=== PATIENT | female | born 1935 | race Caucasian/White ===

== ENCOUNTER 2017-01-08 14:09 | Outpatient (CLI) | payer MEDICARE, OTHER | END 2017-01-08 14:10 | disposition home or self-care (01) | DX: I10 Essential (primary) hypertension (principal); I51.9 Heart disease, unspecified ==

== ENCOUNTER 2017-01-08 15:44 | Outpatient (CLI) | payer MEDICARE, OTHER | END 2017-01-08 15:45 | disposition home or self-care (01) | DX: I51.9 Heart disease, unspecified (principal) ==

== ENCOUNTER 2017-01-10 13:00 | Outpatient (CLI) | payer MEDICARE, OTHER | END 2017-01-10 13:01 | disposition home or self-care (01) | DX: R25.2 Cramp and spasm (principal) ==

== ENCOUNTER 2017-05-08 14:35 | Outpatient (CLI) | payer MEDICARE, OTHER ==
[2017-05-08 19:07] LABS: CALCIUM 9.4 mg/dL (8.5-10.3); CREATININE 0.6 mg/dL (0.4-1.0); PHOSPHORUS 3.3 mg/dL (2.5-4.6); POTASSIUM 3.2 mmol/L (3.5-5.0)
== END 2017-05-08 14:36 | disposition home or self-care (01) ==
LOC: LAB.F 14:35
PROVIDERS: ATTEND Nurse Practitioner Family
DX: I10 Essential (primary) hypertension (principal)
CPT/HCPCS: 36415; 80069

== ENCOUNTER 2017-05-10 16:52 | Emergency (ER) | payer MEDICARE, OTHER ==
[2017-05-10 17:31] LABS: BASOPHILS % (AUTO) 0.4 %; EOSINOPHILS % (AUTO) 0.7 %; HCT - HEMATOCRIT 39.7 % (37.0-47.0); HGB - HEMOGLOBIN 13.6 g/dL (12.0-16.0); LYMPHOCYTES # (AUTO) 1.7 10^3/uL (1.5-3.5); LYMPHOCYTES % (AUTO) 30.4 %; MEAN CORPUSCULAR HEMOGLOBIN 31.3 pg (27.0-31.0); MEAN CORPUSCULAR HGB CONC 34.2 g/dL (32.0-36.0); MEAN CORPUSCULAR VOLUME 91.5 fL (81.0-99.0); MONOCYTES # (AUTO) 0.5 10^3/uL (0.0-1.0); MONOCYTES % (AUTO) 9.4 %; NEUTROPHILS # (AUTO) 3.3 10^3/uL (1.5-6.6); NEUTROPHILS % (AUTO) 59.1 %; RED BLOOD COUNT 4.34 10^6/uL (4.20-5.40); RED CELL DISTRIBUTION WIDTH 12.9 % (12.0-15.0); UNCORRECTED WHITE BLOOD COUNT 5.7 x10^3/uL; WHITE BLOOD COUNT 5.7 x10^3/uL (4.8-10.8)
[2017-05-10 17:46] LABS: ALBUMIN/GLOBULIN RATIO 1.4 (1.0-2.2); BILIRUBIN,TOTAL 1.2 mg/dL (0.2-1.0); CALCIUM 9.7 mg/dL (8.5-10.3); CREATININE 0.8 mg/dL (0.4-1.0); POTASSIUM 3.6 mmol/L (3.5-5.0); TOTAL PROTEIN 7.3 g/dL (6.7-8.2)
--- NOTE | 2017-05-10 18:56 | ED Physician Documentation ---
PD HPI CHEST PAIN - Stated complaint Stated Complaint: CHEST PX - Chief complaint Chief Complaint: Cardiac - History obtained from History obtained from: Patient - History of Present Illness Timing - onset: How many days ago (few) Timing - onset during: Sleep, Rest. No: Exertion Timing - duration: Minutes Timing - details: Intermittant Quality: Aching, Dull Location: Substernal, Epigastric Radiation: No: Jaw, Neck, Back, Abdominal, Left upper extremity, Right upper extremity, Other Improved by: Other (at times with eating). No: Rest Worsened by: No: Exertion, Inspiration, Eating, Movement, Palpation Associated symptoms: Nausea (at times). No: Shortness of air, Diaphoresis, Vomiting, Feeling faint / dizzy, General Weakness, Palpitations, Cough Similar symptoms before: Has not had sx before Recently seen: Not recently seen Review of Systems Constitutional: denies: Fever, Chills Nose: denies: Rhinorrhea / runny nose, Congestion Throat: denies: Sore throat Cardiac: denies: Palpitations, Pedal edema, Calf pain Respiratory: denies: Cough GI: reports: Nausea. denies: Abdominal Pain, Vomiting, Diarrhea : denies: Dysuria, Frequency Skin: denies: Rash, Lesions Neurologic: denies: Generalized weakness, Near syncope PD PAST MEDICAL HISTORY - Past Medical History Cardiovascular: Hypertension Endocrine/Autoimmune: HyPOthyroidism GI: GERD : Incontinence Psych: Claustrophobia Musculoskeletal: Osteoarthritis Derm: None - Past Surgical History General: Cholecystectomy - Present Medications Home Medications: Ambulatory Orders Medication Instructions Recorded Confirmed Hydrochlorothiazide 25 mg DAILY 06/22/14 07/14/14 Thyroid,Pork [Nature-Throid] 65 mg PO DAILY 06/22/14 07/14/14 Famotidine [Pepcid] 20 mg PO ONCE #30 tablet 05/10/17 - Allergies Allergies/Adverse Reactions: Allergies Allergy/AdvReac Type Severity Reaction Status Date / Time meperidine HCl * Allergy Mild Emesis Verified 06/22/14 11:11 [From Demerol] PD ED PE NORMAL - Vitals Vital signs reviewed: Yes - General General: Alert and oriented X 3, Well developed/nourished - HEENT HEENT: Ears normal, Pharynx benign - Neck Neck: Supple, no meningeal sign, No adenopathy - Cardiac Cardiac: RRR, No murmur - Respiratory Respiratory: Clear bilaterally - Abdomen Abdomen: Soft, Non tender - Back Back: No CVA TTP - Derm Derm: Normal color, Warm and dry, No rash - Extremities Extremities: Normal ROM s pain, No edema, No calf tenderness / cord - Neuro Neuro: Alert and oriented X 3, supervisor calibration 2-12 intact, No motor deficit, No sensory deficit, Normal speech, Other - Psych Psych: Normal mood, Normal affect Results - Vitals Vitals: Oxygen O2 Source Room air - EKG (time done) 17:12 Rate: Rate (enter#) (71) Rhythm: NSR [place]: Normal Intervals: Normal [place] QRS: Normal Ischemia: Normal ST segments. No: ST elevation c/w ischemia, ST depression - Labs Labs: Laboratory Tests 05/10/17 05/10/17 05/10/17 17:25 17:25 17:25 WBC 5.7 RBC 4.34 Hgb 13.6 Hct 39.7 MCV 91.5 MCH 31.3 H MCHC 34.2 RDW 12.9 Plt Count 193 MPV 7.0 L Neut # 3.3 Lymph # 1.7 Cameron # 0.5 Eos # 0.0 Baso # 0.0 Absolute Nucleated RBC 0.00 Nucleated RBCs 0.0 Sodium 139 Potassium 3.6 Chloride 101 Carbon Dioxide 30 Anion Gap 8.0 BUN 24 H Creatinine 0.8 Estimated GFR (MDRD) 68 L Glucose 103 H Calcium 9.7 Total Bilirubin 1.2 H AST 21 ALT 24 Alkaline Phosphatase 61 Troponin I < 0.04 Total Protein 7.3 Albumin 4.2 Globulin 3.1 Albumin/Globulin Ratio 1.4 Lipase 23 PD MEDICAL DECISION MAKING - ED course Complexity details: reviewed results, considered differential (pain occurring more with lying down and rest, not with activity nor walking. Seemed improved with eating at times. Basic screening tests okay. ), d/w patient Departure - Departure Disposition: 01 Home, Self Care Clinical Impression: Chest pain Qualifiers: Chest pain type: precordial pain Qualified Code(s): R07.2 - Precordial pain Condition: Stable Record reviewed to determine appropriate education?: Yes Instructions: ED Chest Pain Atypical Unkn Cause Follow-Up: Concepcion Sylvester ARNP [Primary Care Provider] - Prescriptions: Famotidine [Pepcid] 20 mg PO ONCE #30 tablet Comments: Famotidine daily for 2-3 weeks. Use some antacid such as maalox or Mylanta 4 times daily for the next few days. Tylenol as needed for pains. Recheck if not better over the next 2-3 days, sooner if worse or other symptoms develop. I think this is likely stomach/GERD related. It does not sound like heart pain. Discharge Date/Time: 05/10/17 20:37
[2017-05-10] MEDS ORDERED: MAG HYDROX/AL HYDROX/SIMETH 30 ML UDC PO STA (20:16)
[2017-05-10] MEDS ORDERED: FAMOTIDINE 20 MG TABLET PO STA (20:16)
[2017-05-10] MEDS ORDERED: FAMOTIDINE 20 MG TABLET ONE (20:23)
[2017-05-10] MEDS ORDERED: MAG HYDROX/AL HYDROX/SIMETH 30 ML UDC ONE (20:23)
[2017-05-10 20:37] VITALS: BP 149/70
== END 2017-05-10 20:37 | disposition home or self-care (01) ==
LOC: ED 16:52
DX: R07.9 Chest pain, unspecified (principal); R10.13 Epigastric pain; I10 Essential (primary) hypertension; E03.9 Hypothyroidism, unspecified; K21.9 Gastro-esophageal reflux disease without esophagitis; M19.90 Unspecified osteoarthritis, unspecified site
CPT/HCPCS: 36415; 80053; 83690; 84484; 85025; 93005; 99283; 99284; A9270

== ENCOUNTER 2017-05-20 10:26 | Outpatient (CLI) | payer MEDICARE, OTHER ==
[2017-05-20 18:55] LABS: ALBUMIN/GLOBULIN RATIO 1.3 (1.0-2.2); BILIRUBIN,TOTAL 1.3 mg/dL (0.2-1.0); CALCIUM 9.7 mg/dL (8.5-10.3); CREATININE 0.7 mg/dL (0.4-1.0); POTASSIUM 3.8 mmol/L (3.5-5.0); TOTAL PROTEIN 7.2 g/dL (6.7-8.2)
[2017-05-20 19:26] LABS: HEMOGLOBIN A1C 0.52 g/dL
== END 2017-05-20 10:27 | disposition home or self-care (01) ==
LOC: LAB.S 10:26
PROVIDERS: ATTEND Nurse Practitioner Family
DX: E87.6 Hypokalemia (principal); R73.01 Impaired fasting glucose
CPT/HCPCS: 36415; 80053; 83036

== ENCOUNTER 2017-07-08 07:15 | Outpatient (CLI) | payer MEDICARE, OTHER | END 2017-07-08 07:16 | disposition home or self-care (01) | LOC: LAB.S 07:15 | PROVIDERS: ATTEND Nurse Practitioner Family | DX: G62.9 Polyneuropathy, unspecified (principal) | CPT/HCPCS: 36415; 82607; 84207; 84425 ==

== ENCOUNTER 2018-01-06 08:00 | Outpatient (CLI) | payer MEDICARE, OTHER ==
[2018-01-07 10:32] LABS: BASOPHILS % (AUTO) 0.6 %; EOSINOPHILS % (AUTO) 0.6 %; HGB - HEMOGLOBIN 13.6 g/dL (12.0-16.0); LYMPHOCYTES # (AUTO) 1.6 10^3/uL (1.5-3.5); LYMPHOCYTES % (AUTO) 24.7 %; MEAN CORPUSCULAR HEMOGLOBIN 31.6 pg (27.0-31.0); MEAN CORPUSCULAR HGB CONC 34.7 g/dL (32.0-36.0); MEAN CORPUSCULAR VOLUME 90.9 fL (81.0-99.0); MEAN PLATELET VOLUME 8.5 fL (7.9-10.8); MONOCYTES # (AUTO) 0.5 10^3/uL (0.0-1.0); MONOCYTES % (AUTO) 7.7 %; NEUTROPHILS # (AUTO) 4.4 10^3/uL (1.5-6.6); NEUTROPHILS % (AUTO) 66.4 %; PLT - PLATELET COUNT 197 10^3/uL (130-450); RED BLOOD COUNT 4.32 10^6/uL (4.20-5.40); RED CELL DISTRIBUTION WIDTH 13.1 % (12.0-15.0); WHITE BLOOD COUNT 6.6 x10^3/uL (4.8-10.8)
[2018-01-07 10:35] LABS: ALBUMIN 4.2 g/dL (3.2-5.5); ALBUMIN/GLOBULIN RATIO 1.4 (1.0-2.2); BILIRUBIN,TOTAL 0.8 mg/dL (0.2-1.0); CALCIUM 9.7 mg/dL (8.5-10.3); CREATININE 0.7 mg/dL (0.4-1.0); TOTAL PROTEIN 7.1 g/dL (6.7-8.2)
== END 2018-01-06 08:01 ==
LOC: LAB.F 08:00
PROVIDERS: ATTEND Nurse Practitioner Family
DX: R10.11 Right upper quadrant pain (principal)
CPT/HCPCS: 36415; 80053; 85025

== ENCOUNTER 2018-01-13 08:00 | Outpatient (CLI) | payer MEDICARE, OTHER ==
[2018-01-13 18:21] LABS: MAGNESIUM 2.1 mg/dL (1.7-2.8)
[2018-01-13 18:23] LABS: CRP - C-REACTIVE PROTEIN < 1.0 mg/dL (0-1.0)
[2018-01-13 19:22] LABS: RHEUMATOID FACTOR NEGATIVE (Negative)
[2018-01-15 20:27] LABS: ANA SCREEN POSITIVE (NEGATIVE)
== END 2018-01-13 08:01 | disposition home or self-care (01) ==
LOC: LAB.S 08:00
PROVIDERS: ATTEND Nurse Practitioner Family
DX: M25.50 Pain in unspecified joint (principal); R25.2 Cramp and spasm
CPT/HCPCS: 36415; 82607; 83735; 85651; 86038; 86140; 86430

== ENCOUNTER 2018-01-20 09:18 | Outpatient (CLI) | payer MEDICARE, OTHER ==
--- NOTE | 2018-01-20 11:43 | Ultrasound Report ---
RIGHT UPPER QUADRANT ULTRASOUND: 01/20/2018 CLINICAL INDICATION: Pain. COMPARISON: 12/03/2015. TECHNIQUE: Real-time scanning was performed with livestock sales representative static images obtained. FINDINGS: The liver measures 17.6 cm. Hepatic echotexture is normal. Intrahepatic biliary prominence is stable. Dilation of the common bile duct is stable, measuring up to 20 mm at the pancreatic head. No focal hepatic lesion is seen. Dilation of the cystic duct is unchanged. The patient is status post cholecystectomy. The right kidney measures 11.3 cm, and demonstrates no hydronephrosis. No free fluid is seen. IMPRESSION: PERSISTENT BILIARY DILATATION, WITHOUT EVIDENCE OF CHOLEDOCHOLITHIASIS. NO SIGNIFICANT INTERVAL CHANGE. TD: 01/20/2018 11:42
== END 2018-01-20 09:19 | disposition home or self-care (01) ==
LOC: DI 09:18
PROVIDERS: ATTEND Nurse Practitioner Family
DX: K83.8 Other specified diseases of biliary tract (principal)
CPT/HCPCS: 76705

== ENCOUNTER 2018-03-05 08:00 | Outpatient (CLI) | payer MEDICARE, OTHER ==
[2018-03-05 18:03] LABS: BILIRUBIN,DIRECT 0.2 mg/dL (0.1-0.5); BILIRUBIN,TOTAL 1.1 mg/dL (0.2-1.0)
== END 2018-03-05 08:01 | disposition home or self-care (01) ==
LOC: LAB.F 08:00
PROVIDERS: ATTEND Physician Assistant
DX: R10.11 Right upper quadrant pain (principal)
CPT/HCPCS: 36415; 80076; 82150; 83690

== ENCOUNTER 2018-05-15 09:31 | Outpatient (CLI) | payer MEDICARE, OTHER ==
--- NOTE | 2018-05-16 10:43 | MRI Report ---
Procedure Date: 05/15/2018 Accession Number: [id number] / [id number] Procedure: MRI - Breast Bilateral W/O Contrast CPT Code: FULL RESULT: EXAM: Breast Bilateral W/O Contrast DATE: 05/15/2018 10:40 AM CLINICAL HISTORY: CAPSULAR CONTRACTURE OF BREAST IMPLANT,INITIAL ENC TECHNIQUE: Using a dedicated breast coil, axial silicone and silicone suppressed as well as sagittal left and right silicone only sequences were obtained. Contrast was not administered. COMPARISON: None FINDINGS: Both breasts demonstrate heterogeneous fibroglandular tissue. Both breasts demonstrate ruptured retroglandular silicone implants with a " linguini sign" on bilaterally. The implant ruptures are intracapsular. IMPRESSION: Bilateral silicone implant rupture, intracapsular. RECOMMENDATION: Referral for consideration of surgical removal of the implants. BIRADS: 3 Comment: Breast MRI is a highly sensitive examination, and has a cancer detection threshold down to approximately 5 mm; however, it only has moderate specificity. Although breast MRI has a high negative predictive value, appropriate clinical and mammographic follow-up are always necessary. MRI may miss less angiogenic tumors; therefore it should not be used to avoid a biopsy which is otherwise clinically indicated. Normal-appearing lymph nodes may contain microscopic tumor. Due to prone positioning, the described location of findings may differ from other modalities.
== END 2018-05-15 09:32 | disposition home or self-care (01) ==
LOC: DI 09:31
PROVIDERS: ATTEND Surgery Plastic and Reconstructive Surgery
DX: T85.43XA Leakage of breast prosthesis and implant, initial encounter (principal)
CPT/HCPCS: 77059

== ENCOUNTER 2018-10-30 15:27 | Outpatient (CLI) | payer MEDICARE, OTHER ==
[2018-10-30 17:21] LABS: BASOPHILS % (AUTO) 0.4 %; EOSINOPHILS % (AUTO) 0.6 %; HGB - HEMOGLOBIN 14.6 g/dL (12.0-16.0); LYMPHOCYTES # (AUTO) 1.7 10^3/uL (1.5-3.5); LYMPHOCYTES % (AUTO) 23.2 %; MEAN CORPUSCULAR HEMOGLOBIN 31.4 pg (27.0-31.0); MEAN CORPUSCULAR HGB CONC 34.4 g/dL (32.0-36.0); MEAN CORPUSCULAR VOLUME 91.5 fL (81.0-99.0); MEAN PLATELET VOLUME 7.8 fL (7.9-10.8); MONOCYTES # (AUTO) 0.6 10^3/uL (0.0-1.0); MONOCYTES % (AUTO) 7.8 %; NEUTROPHILS # (AUTO) 4.9 10^3/uL (1.5-6.6); PLT - PLATELET COUNT 208 10^3/uL (130-450); RED BLOOD COUNT 4.65 10^6/uL (4.20-5.40); RED CELL DISTRIBUTION WIDTH 13.3 % (12.0-15.0); WHITE BLOOD COUNT 7.2 x10^3/uL (4.8-10.8)
[2018-10-30 17:37] LABS: ALBUMIN 4.3 g/dL (3.2-5.5); ALBUMIN/GLOBULIN RATIO 1.4 (1.0-2.2); ALKALINE PHOSPHATASE 63 IU/L (42-121); ALT ALANINE AMINOTRANSFERASE 18 IU/L (10-60); AST ASPARTATE AMINOTRANSFERASE 19 IU/L (10-42); BILIRUBIN,TOTAL 1.5 mg/dL (0.2-1.0); BUN - BLOOD UREA NITROGEN 21 mg/dL (6-20); CALCIUM 9.5 mg/dL (8.5-10.3); CARBON DIOXIDE - CO2 29 mmol/L (21-32); CHLORIDE 96 mmol/L (101-111); CREATININE 0.6 mg/dL (0.4-1.0); GFR - MDRD 95 (>89); GLUCOSE 93 mg/dL (70-100); SODIUM 134 mmol/L (135-145); TOTAL PROTEIN 7.3 g/dL (6.7-8.2); URIC ACID 4.3 mg/dL (2.6-7.2)
[2018-10-30 17:46] LABS: THYROID STIMULATING HORMONE 2.79 uIU/mL (0.34-5.60)
[2018-10-30 17:48] LABS: FREE T4 (FREE THYROXINE) 0.54 ng/dL (0.58-1.64)
[2018-10-30 18:18] LABS: CRP - C-REACTIVE PROTEIN < 1.0 mg/dL (0-1.0)
[2018-10-30 18:19] LABS: RHEUMATOID FACTOR NEGATIVE (Negative)
[2018-11-03 17:35] LABS: ANA SCREEN POSITIVE (NEGATIVE)
== END 2018-10-30 15:28 | disposition home or self-care (01) ==
LOC: LAB.F 15:27
PROVIDERS: ATTEND Nurse Practitioner Family
DX: G62.9 Polyneuropathy, unspecified (principal); E03.9 Hypothyroidism, unspecified; M25.50 Pain in unspecified joint; M79.676 Pain in unspecified toe(s); R20.2 Paresthesia of skin; R20.0 Anesthesia of skin
CPT/HCPCS: 36415; 80053; 82607; 84207; 84439; 84443; 84481; 84550; 85025; 85651; 86038; 86140; 86430

== ENCOUNTER 2018-11-17 08:00 | Outpatient (CLI) | payer MEDICARE, OTHER ==
[2018-11-17 18:24] LABS: CALCIUM 9.4 mg/dL (8.5-10.3); CREATININE 0.6 mg/dL (0.4-1.0)
== END 2018-11-17 23:59 | disposition home or self-care (01) ==
LOC: LAB.S 08:00
PROVIDERS: ATTEND Nurse Practitioner Family
DX: E87.6 Hypokalemia (principal)
CPT/HCPCS: 36415; 80048

== ENCOUNTER 2019-07-08 15:35 | Outpatient (CLI) | payer MEDICARE, OTHER ==
[2019-07-08 17:45] LABS: MAGNESIUM 2.5 mg/dL (1.7-2.8)
== END 2019-07-08 15:36 | disposition home or self-care (01) ==
LOC: LAB.S 15:35
PROVIDERS: ATTEND Physician Assistant Medical
DX: G47.62 Sleep related leg cramps (principal)
CPT/HCPCS: 36415; 83735; 84132

== ENCOUNTER 2019-08-06 13:20 | Outpatient (CLI) | payer MEDICARE, OTHER ==
[2019-08-06 18:13] LABS: HB2 TOTAL 14.5 g/dL; HEMOGLOBIN A1C 0.53 g/dL; HEMOGLOBIN A1C % 5.5 % (4.6-6.2)
[2019-08-07 11:11] LABS: HOMOCYSTEINE 9.2 umol/L (<10.4)
[2019-08-08 16:06] LABS: ALBUMIN 4.3 g/dL (3.8-4.8); ALPHA 1 GLOBULIN 0.3 g/dL (0.2-0.3); ALPHA 2 GLOBULIN 0.7 g/dL (0.5-0.9); BETA 1 GLOBULIN 0.4 g/dL (0.4-0.6); BETA 2 GLOBULIN 0.3 g/dL (0.2-0.5); GAMMA GLOBULIN 1.2 g/dL (0.8-1.7)
== END 2019-08-06 13:21 | disposition home or self-care (01) ==
LOC: LAB.S 13:20
PROVIDERS: ATTEND Psychiatry & Neurology Neurology
DX: R20.2 Paresthesia of skin (principal)
CPT/HCPCS: 36415; 83036; 83090; 83921; 84155; 84165; 84207

== ENCOUNTER 2019-08-24 14:54 | Outpatient (CLI) | payer MEDICARE, OTHER | END 2019-08-24 14:55 | disposition home or self-care (01) | LOC: LAB.S 14:54 | PROVIDERS: ATTEND Physician Assistant Medical | DX: Z53.9 Procedure and treatment not carried out, unspecified reason (principal) ==

== ENCOUNTER 2019-08-25 10:36 | Outpatient (CLI) | payer MEDICARE, OTHER ==
[2019-08-25 18:01] LABS: THYROID STIMULATING HORMONE 2.6 uIU/mL (0.34-5.60)
[2019-08-25 18:03] LABS: FREE T4 (FREE THYROXINE) 0.9 ng/dL (0.58-1.64)
== END 2019-08-25 10:37 | disposition home or self-care (01) ==
LOC: LAB.S 10:36
PROVIDERS: ATTEND Physician Assistant Medical
DX: E72.12 Methylenetetrahydrofolate reductase deficiency (principal); E03.9 Hypothyroidism, unspecified
CPT/HCPCS: 36415; 82607; 82746; 84207; 84439; 84443; 84481

== ENCOUNTER 2019-11-19 08:00 | Outpatient (CLI) | payer MEDICARE, OTHER | END 2019-11-19 23:59 | disposition home or self-care (01) | LOC: LAB.R 08:00 | PROVIDERS: ATTEND Physician Assistant Medical | DX: K92.1 Melena (principal) | CPT/HCPCS: 82274 ==

== ENCOUNTER 2019-12-21 14:16 | Outpatient (CLI) | payer MEDICARE, OTHER ==
[2019-12-21 18:29] LABS: THYROID STIMULATING HORMONE 3.65 uIU/mL (0.34-5.60)
[2019-12-21 18:31] LABS: FREE T4 (FREE THYROXINE) 0.97 ng/dL (0.58-1.64)
== END 2019-12-21 14:17 | disposition home or self-care (01) ==
LOC: LAB.S 14:16
PROVIDERS: ATTEND Physician Assistant Medical
DX: E03.9 Hypothyroidism, unspecified (principal)
CPT/HCPCS: 36415; 84439; 84443; 84481

== ENCOUNTER 2020-04-26 18:50 | Outpatient (CLI) | payer MEDICARE, OTHER ==
--- NOTE | 2020-04-26 18:53 | XRAY Report ---
PROCEDURE: Ankle 3 View RT INDICATIONS: RIGHT ANKLEL PAIN TECHNIQUE: 3 views of the ankle were acquired. COMPARISON: None FINDINGS: Bones: No fractures or dislocations. Small retrocalcaneal spur. Ankle mortise is normally aligned. No suspicious bony lesions. Soft tissues: No tibiotalar joint effusion. Achilles tendon appears normal. IMPRESSION: Right ankle without acute or subacute osseous abnormalities. Small retrocalcaneal enthesophyte. If there is continued clinical concern for internal soft tissue derangement, consider further evalua tion with MRI. Reviewed by: Madi Looney MD on 04/26/2020 6:52 PM PDT Approved by: Madi Looney MD on 04/26/2020 6:52 PM PDT Station ID: [id number]
== END 2020-04-26 23:59 | disposition home or self-care (01) ==
LOC: DI.S 18:50
PROVIDERS: ATTEND Physician Assistant Medical
DX: M77.31 Calcaneal spur, right foot (principal)

== ENCOUNTER 2020-06-08 10:15 | Outpatient (CLI) | payer MEDICARE, OTHER ==
[2020-06-08 15:13] LABS: BASOPHILS % (AUTO) 0.4 %; EOSINOPHILS # (AUTO) 0.1 10^3/uL (0.0-0.7); EOSINOPHILS % (AUTO) 1.3 %; HGB - HEMOGLOBIN 14.2 g/dL (12.0-16.0); LYMPHOCYTES # (AUTO) 1.3 10^3/uL (1.5-3.5); LYMPHOCYTES % (AUTO) 29.5 %; MEAN CORPUSCULAR HEMOGLOBIN 30.5 pg (27.0-31.0); MEAN CORPUSCULAR HGB CONC 32.5 g/dL (32.0-36.0); MEAN CORPUSCULAR VOLUME 93.8 fL (81.0-99.0); MEAN PLATELET VOLUME 9.8 fL (7.9-10.8); MONOCYTES # (AUTO) 0.4 10^3/uL (0.0-1.0); NEUTROPHILS # (AUTO) 2.7 10^3/uL (1.5-6.6); NEUTROPHILS % (AUTO) 60.6 %; PLT - PLATELET COUNT 200 10^3/uL (130-450); RED BLOOD COUNT 4.66 10^6/uL (4.20-5.40); RED CELL DISTRIBUTION WIDTH 13.1 % (12.0-15.0); WHITE BLOOD COUNT 4.5 x10^3/uL (4.8-10.8)
[2020-06-08 15:43] LABS: ALBUMIN 4.1 g/dL (3.2-5.5); ALBUMIN/GLOBULIN RATIO 1.4 (1.0-2.2); ALKALINE PHOSPHATASE 66 IU/L (42-121); ALT ALANINE AMINOTRANSFERASE 23 IU/L (10-60); AST ASPARTATE AMINOTRANSFERASE 19 IU/L (10-42); BUN - BLOOD UREA NITROGEN 18 mg/dL (6-20); CALCIUM 9.4 mg/dL (8.5-10.3); CARBON DIOXIDE - CO2 30 mmol/L (21-32); CHLORIDE 100 mmol/L (101-111); CHOL/HDL RATIO 4.4 (<4.4); CHOLESTEROL 252 mg/dL; CREATININE 0.7 mg/dL (0.4-1.0); GLUCOSE 112 mg/dL (70-100); HDL CHOLESTEROL 57 mg/dL; LDL CHOLESTEROL,CALCULATED 150 mg/dL; LDL/HDL RATIO 2.6 (<4.4); SODIUM 139 mmol/L (135-145); VLDL CHOLESTEROL 45 mg/dL
== END 2020-06-08 10:16 | disposition home or self-care (01) ==
LOC: LAB.S 10:15
PROVIDERS: ATTEND Registered Nurse
DX: I50.9 Heart failure, unspecified (principal); Z86.39 Personal history of other endocrine, nutritional and metabolic disease; D64.9 Anemia, unspecified; R73.01 Impaired fasting glucose; E03.9 Hypothyroidism, unspecified; G62.9 Polyneuropathy, unspecified
CPT/HCPCS: 36415; 80053; 80061; 83721; 84443; 85025

== ENCOUNTER 2020-06-28 15:04 | Outpatient (CLI) | payer MEDICARE, OTHER | END 2020-06-28 15:05 | disposition home or self-care (01) | LOC: LAB.S 15:04 | PROVIDERS: ATTEND Registered Nurse | DX: M25.50 Pain in unspecified joint (principal) | CPT/HCPCS: 36415; 84550 ==

== ENCOUNTER 2020-07-09 09:30 | Outpatient (CLI) | payer MEDICARE, OTHER ==
--- NOTE | 2020-07-09 11:29 | Ultrasound Report ---
PROCEDURE: Abdomen Complete INDICATIONS: UPPER QUADRANT ABDOMINAL SWELLING TECHNIQUE: Real-time scanning was performed of the abdominal and retroperitoneal organs, with image documentatio n. COMPARISON: MRCP 11/03/2013 FINDINGS: Liver: Liver is enlarged with steatosis. Gallbladder: : Gallbladder has been removed. Gallbladder fossa is unremarkable. Biliary ducts: Intrahepatic bile ducts are non-dilated. Extrahepatic bile duct caliber measures 2.1 mm. Normal is 6-7 mm or less in diameter, or 10 mm or less post-cholecystectomy. Pancreas: Visualized portions of the pancreas demonstrate a hypoechoic focus within the pancreatic h ead/body measuring 6 x 6 x 6 mm. This appears unchanged compared to MRCP in 2014. Spleen: Spleen is normal in size and homogeneous in echotexture. Kidneys: Kidneys are normal in size and echotexture. Right kidney measures 11.6 cm long; left kidne y measures 11.5 cm long. Right parapelvic cyst is present measuring 20 x 15 x 13 mm. Microcalcificati on measuring approximately 4 x 4 by 4 mm is present within the right kidney. Calyces are prominent bi laterally. No solid masses. Aorta: Visualized aorta is normal in caliber at less than 3 cm. Iliacs: Proximal common iliac arteries are normal in caliber at less than 2.5 cm. IVC: Intrahepatic inferior vena cava is patent. Miscellaneous: No free abdominal fluid. IMPRESSION: 1. Cholecystitis. 2. Unchanged pancreatic cystic focus without pancreatic ductal dilation as above. IPMN is suspected. Reviewed by: Dottie Hamlin MD on 07/09/2020 11:27 AM PDT Approved by: Dottie Hamlin MD on 07/09/2020 11:27 AM PDT Station ID: [id number]
== END 2020-07-09 09:31 | disposition home or self-care (01) ==
LOC: DI 09:30
PROVIDERS: ATTEND Registered Nurse
DX: K81.9 Cholecystitis, unspecified (principal); K86.2 Cyst of pancreas; K86.89 Other specified diseases of pancreas
CPT/HCPCS: 76700

== ENCOUNTER 2020-07-28 14:32 | Outpatient (CLI) | payer MEDICARE, OTHER ==
[2020-07-28 20:50] LABS: RHEUMATOID FACTOR NEGATIVE (Negative)
== END 2020-07-28 14:33 | disposition home or self-care (01) ==
LOC: LAB.S 14:32
PROVIDERS: ATTEND Registered Nurse
DX: E53.9 Vitamin B deficiency, unspecified (principal); M25.50 Pain in unspecified joint; Z83.49 Family history of other endocrine, nutritional and metabolic diseases; I50.9 Heart failure, unspecified
CPT/HCPCS: 36415; 81599; 82607; 84207; 84425; 86038; 86430

== ENCOUNTER 2020-08-03 10:56 | Outpatient (CLI) | payer MEDICARE, OTHER ==
--- NOTE | 2020-08-04 14:13 | Mammography Report ---
BILATERAL DIGITAL DIAGNOSTIC MAMMOGRAM 3D/2D: 08/03/2020 CLINICAL: Baseline exam. Post implant removal. Comparison is made to exams dated: 05/15/2018 breast MRI, 12/03/2008 ultrasound, 12/03/2008 ultrasound, a nd 12/03/2008 mammogram - [facility]. There are scattered fibroglandular elements in both breasts. No significant masses, calcifications, or other findings are seen in either breast. There has been no significant interval change. IMPRESSION: NEGATIVE There is no mammographic evidence of malignancy. A 1 year screening mammogram is recommended. This exam was interpreted at Station ID: [id number]. NOTE: For mammograms, a report in lay terms will be sent to the patient. Approximately 15% of breast malignancies will not be visualized mammographically. In the management of a palpable breast mass, a negative mammogram must not discourage biopsy of a clinically suspicious lesion. Electronically Signed By: Fernando Ewing M.D., jr/isac:08/03/2020 12:22:30 ACR BI-RADS Category 1: Negative 3341F PARENCHYMAL PATTERN: (A) - The breast(s) demonstrate(s) scattered fibroglandular densities. BI-RADS CATEGORY: (1) - 1 RECOMMENDATION: (ANNUAL) - Recommend routine annual screening mammography. [id number] 1 year screening LATERALITY: (B)
== END 2020-08-03 10:57 | disposition home or self-care (01) ==
LOC: DI 10:56
PROVIDERS: ATTEND Registered Nurse
DX: Z98.86 Personal history of breast implant removal (principal)
CPT/HCPCS: 77066

== ENCOUNTER 2020-09-12 14:44 | Outpatient (CLI) | payer MEDICARE, OTHER ==
--- NOTE | 2020-09-12 17:06 | MRI Report ---
PROCEDURE: Ankle RT W/O INDICATIONS: RT ANKLE PAIN TECHNIQUE: Noncontrast Magnetic Resonance Imaging (MRI) of the ankle/hindfoot was performed utilizing the follow ing sequences: sagittal T1 spin echo, sagittal STIR, axial PD fast spin echo, axial T2 fast spin echo with fat saturation, coronal T2 spin echo with fat saturation, and PD fast spin echo with fat satura tion. COMPARISON: Right ankle radiographs dated 04/26/2020 FINDINGS: Image quality: Excellent. Bones and joints: No acute fracture, dislocation, or suspicious osseous lesion of the midfoot or hindfoot bones is pres ent. Minimal degenerative spurring is seen at the dorsal aspect of the talonavicular joint. The ankle mortise is well-maintained. No osteochondral defects are evident involving the tibial plafond toward the talar dome. Medial structures: The deltoid ligament and the spring ligament are intact. The posterior tibialis, flexor digitorum longus, and flexor hallucis longus tendons are intact and wi thin normal limits. The posterior tibial neurovascular bundle appears normal within the tarsal tunnel , without extrinsic mass effect. Lateral structures: The anterior and posterior distal tibiofibular ligaments are also intact. The anterior talofibular li gament, posterior talofibular ligament, and calcaneofibular ligament are intact. There is mild peroneus brevis tendinosis. The peroneus longus tendon is intact. The sinus tarsi demonstrates normal fatty signal. Anterior structures: The tibialis anterior, extensor hallucis longus, and extensor digitorum longus tendons appear intact. Posterior and plantar structures: The Achilles tendon is intact. The medial and lateral bands of the plantar fascia are within normal l imits. Soft tissues: A small ganglion cyst is seen dorsal to the navicular cuneiform articulation at the anteromedial aspe ct of the ankle measuring 9 x 4 x 6 mm. Mild nonspecific soft tissue edema is seen surrounding the an kle and at the dorsal foot. Mild fatty infiltration of the intrinsic foot musculature is noted. IMPRESSION: 1. Small 9 mm ganglion cyst at the anteromedial aspect of the ankle in the region of the skin marker . 2. No acute trabecular bone injury. No significant ligament injury is seen. 3. Mild tendinosis of the peroneus brevis tendon. Reviewed by: Aroldo Rincon MD on 09/12/2020 5:04 PM PST Approved by: Aroldo Rincon MD on 09/12/2020 5:04 PM [facility] Station ID: [id number]
== END 2020-09-12 14:45 | disposition home or self-care (01) ==
LOC: DI 14:44
PROVIDERS: ATTEND Registered Nurse
DX: M67.471 Ganglion, right ankle and foot (principal); M67.971 Unspecified disorder of synovium and tendon, right ankle and foot

== ENCOUNTER 2021-04-17 08:00 | Outpatient (CLI) | payer MEDICARE, OTHER ==
--- NOTE | 2021-04-17 16:08 | XRAY Report ---
PROCEDURE: Chest 2 View X-Ray INDICATIONS: EXERTIONAL SOB, RIGHT SIDED CHEST PAIN TECHNIQUE: 2 view(s) of the chest. COMPARISON: 02/03/2014 chest x-ray FINDINGS: Surgical changes and devices: Breast implants are present bilaterally. Lungs and pleura: No pleural effusions or pneumothorax. Lungs are clear. Mediastinum: Mediastinal contours are normal. Heart size is normal. Bones and chest wall: No suspicious bony abnormalities. Soft tissues appear unremarkable. IMPRESSION: No acute process. Reviewed by: Jennifer Pemberton MD on 04/17/2021 4:07 PM PDT Approved by: Jennifer Pemberton MD on 04/17/2021 4:07 PM PDT Station ID: [id number]
--- NOTE | 2021-04-17 16:13 | XRAY Report ---
PROCEDURE: Ribs 2 View RT INDICATIONS: RIGHT SIDED CHEST PAIN TECHNIQUE: 3 views of the right ribs were acquired. COMPARISON: None FINDINGS: Surgical changes and devices: None. Bones and chest wall: No fractures or dislocations. No suspicious bony lesions. Overlying soft tis sues appear unremarkable. Lungs and pleura: The visualized lung appears clear. No pleural effusions or pneumothorax are visib le. IMPRESSION: No acute fracture. No osseous lesion. If symptoms and/or clinical suspicion for pathology continue, f urther assessment with repeat plain films, or advanced imaging (e.g., CT or bone scan) is recommended for further assessment. Reviewed by: Jennifer Pemberton MD on 04/17/2021 4:11 PM PDT Approved by: Jennifer Pemberton MD on 04/17/2021 4:11 PM PDT Station ID: [id number]
== END 2021-04-17 23:59 | disposition home or self-care (01) ==
LOC: DI.S 08:00
PROVIDERS: ATTEND Physician Assistant Medical
DX: R06.09 Other forms of dyspnea (principal); R07.89 Other chest pain

== ENCOUNTER 2021-04-18 14:50 | Outpatient (CLI) | payer MEDICARE, OTHER ==
[2021-04-21 15:32] LABS: ALBUMIN 4.2 g/dL (3.8-4.8); ALPHA 1 GLOBULIN 0.3 g/dL (0.2-0.3); ALPHA 2 GLOBULIN 0.7 g/dL (0.5-0.9); BETA 1 GLOBULIN 0.4 g/dL (0.4-0.6); BETA 2 GLOBULIN 0.3 g/dL (0.2-0.5); GAMMA GLOBULIN 1.1 g/dL (0.8-1.7)
[2021-04-29 13:27] LABS: KAPPA/LAMBDA LC FREE RATIO 1.42 (0.26-1.65)
== END 2021-04-18 14:51 | disposition home or self-care (01) ==
LOC: LAB.S 14:50
PROVIDERS: ATTEND Physician Assistant Medical
DX: R68.89 Other general symptoms and signs (principal)
CPT/HCPCS: 36415; 81599; 82570; 83883; 84155; 84156; 84165; 84166; 86334

== ENCOUNTER 2021-04-28 11:00 | Outpatient (CLI) | payer MEDICARE, OTHER ==
[2021-04-28 15:42] LABS: CHOL/HDL RATIO 3.9 (<4.4); CHOLESTEROL 242 mg/dL; HDL CHOLESTEROL 62 mg/dL; LDL CHOLESTEROL,CALCULATED 154 mg/dL; LDL/HDL RATIO 2.5 (<4.4); TRIGLYCERIDES 131 mg/dL; VLDL CHOLESTEROL 26 mg/dL
[2021-04-28 16:18] LABS: THYROID STIMULATING HORMONE 3.32 uIU/mL (0.34-5.60)
== END 2021-04-28 11:01 | disposition home or self-care (01) ==
LOC: LAB.S 11:00
PROVIDERS: ATTEND Registered Nurse
DX: E03.9 Hypothyroidism, unspecified (principal)
CPT/HCPCS: 36415; 80061; 83721; 84443

== ENCOUNTER 2022-07-04 12:51 | Outpatient (CLI) | payer MEDICARE, OTHER ==
[2022-07-04 14:19] LABS: BASOPHILS % (AUTO) 0.5 %; EOSINOPHILS # (AUTO) 0.1 10^3/uL (0.0-0.7); EOSINOPHILS % (AUTO) 1.1 %; HCT - HEMATOCRIT 43.4 % (37.0-47.0); HGB - HEMOGLOBIN 14.7 g/dL (12.0-16.0); LYMPHOCYTES # (AUTO) 1.4 10^3/uL (1.5-3.5); LYMPHOCYTES % (AUTO) 21.8 %; MEAN CORPUSCULAR HEMOGLOBIN 31.3 pg (27.0-31.0); MEAN CORPUSCULAR HGB CONC 33.9 g/dL (32.0-36.0); MEAN CORPUSCULAR VOLUME 92.3 fL (81.0-99.0); MEAN PLATELET VOLUME 9.7 fL (7.9-10.8); MONOCYTES # (AUTO) 0.7 10^3/uL (0.0-1.0); MONOCYTES % (AUTO) 10.1 %; NEUTROPHILS # (AUTO) 4.4 10^3/uL (1.5-6.6); NEUTROPHILS % (AUTO) 66.2 %; PLT - PLATELET COUNT 213 10^3/uL (130-450); WHITE BLOOD COUNT 6.6 x10^3/uL (4.8-10.8)
[2022-07-04 15:25] LABS: ALBUMIN 4.1 g/dL (3.2-5.5); ALBUMIN/GLOBULIN RATIO 1.2 (1.0-2.2); BILIRUBIN,TOTAL 1.3 mg/dL (0.2-1.0); CREATININE 0.8 mg/dL (0.4-1.0); POTASSIUM 3.5 mmol/L (3.5-5.0); TOTAL PROTEIN 7.5 g/dL (6.7-8.2)
== END 2022-07-04 12:52 | disposition home or self-care (01) ==
LOC: LAB.S 12:51
PROVIDERS: ATTEND Internal Medicine
DX: K62.5 Hemorrhage of anus and rectum (principal); R14.0 Abdominal distension (gaseous)
CPT/HCPCS: 36415; 80053; 85025

== ENCOUNTER 2022-09-04 08:40 | Outpatient (CLI) | payer MEDICARE, OTHER ==
--- NOTE | 2022-09-04 19:44 | Ultrasound Report ---
PROCEDURE: Abdomen Complete INDICATIONS: ABD BLOATING TECHNIQUE: Real-time scanning was performed of the abdominal and retroperitoneal organs, with image documentatio n. COMPARISON: 07/09/2020, 01/20/2018 FINDINGS: Liver: There is a heterogeneous mass in the liver which measures 2.2 x 1.9 x 1.7 cm. This lesion was not identified on the most recent prior ultrasound of 07/09/2020 Gallbladder: Is surgically absent Biliary ducts: There is diffuse biliary ductal dilatation. However, the gallbladder is surgically abs ent. The common bile duct measures 13.4 mm. The common hepatic duct measures 5.2 mm. The distal commo n duct tapers to a diameter of 5.2 mm. Biliary ductal dilatation has been present on multiple prior s tudies. Pancreas: Visualized portions of the pancreas are sonographically normal. Spleen: Spleen is normal in size and homogeneous in echotexture. Kidneys: Kidneys are normal in size and echotexture. Right kidney measures 11.0 cm long; left kidne y measures 11.3 cm long. There are bilateral peripelvic cysts. But there may potentially also be deve loping left-sided hydronephrosis. Aorta: Visualized aorta is normal in caliber at less than 3 cm. Iliacs: Proximal common iliac arteries are normal in caliber at less than 2.5 cm. IVC: Intrahepatic inferior vena cava is patent. Miscellaneous: No free abdominal fluid. IMPRESSION: 1. There is a heterogeneous echogenic mass in the liver measuring 2.2 cm. This was not previously not ed. 2. Remote cholecystectomy with chronic biliary ductal dilatation. 3. There are bilateral peripelvic cysts. Question of developing left-sided hydronephrosis. Comment: Recommend CT of the abdomen and pelvis with and without contrast. The abdominal component sh ould be a liver protocol CT to fully evaluate the liver mass. This would evaluate both the liver and the status of the left kidney. Reviewed by: Aditya Hartley MD on 09/04/2022 7:43 PM PST Approved by: Aditya Hartley MD on 09/04/2022 7:43 PM PST Station ID: [id number]
== END 2022-09-04 08:41 | disposition home or self-care (01) ==
LOC: DI 08:40
PROVIDERS: ATTEND Registered Nurse
DX: R16.0 Hepatomegaly, not elsewhere classified (principal); K83.8 Other specified diseases of biliary tract; N28.1 Cyst of kidney, acquired; Z90.49 Acquired absence of other specified parts of digestive tract